=== PATIENT | female | born 1945 ===

== ENCOUNTER 2024-06-16 07:38 | Day surgery (SDC) | payer OTHER ==
[~2024-06-16 07:38] MED LIST: CHILDREN'S ASPI81 MG PO; LIPITOR20 MG PO; NORVASC2.5 M1 PO; TENORMIN25 MG PO; VYVANSE20 MG PO
[2024-06-16] MEDS ORDERED: POVIDONE-IODINE 118 ML BOTT TOP ONE (12:45)
[2024-06-16] MEDS ORDERED: CEFTRIAXONE SODIUM 2,000 MG VIAL IV SCH (12:45)
[2024-06-16] MEDS ORDERED: METRONIDAZOLE/SODIUM CHLORIDE 500 MG/100 ML PIGGYBACK IV SCH (12:45)
[2024-06-16] MEDS ORDERED: LIDOCAINE HCL 1%/EPINEPHRINE 20ML VIAL IJ ONE (12:45)
[2024-06-16] MEDS ORDERED: BUPIVACAINE HCL 30 ML VIAL IJ ONE (12:45)
[2024-06-16] MEDS ORDERED: HEMOSTATIC MATRIX 1 KIT KIT TOP ONE (12:45)
[2024-06-16] MEDS ORDERED: DIBUCAINE 30 GM TUBE RECTAL ONE (12:45)
== END 2024-06-16 17:00 | disposition home or self-care (01) ==
LOC: CIR.AMB 07:38
PROVIDERS: ATTEND Colon & Rectal Surgery
DX: D12.8 Benign neoplasm of rectum (principal); K92.1 Melena; Z88.2 Allergy status to sulfonamides; Z88.5 Allergy status to narcotic agent